=== PATIENT | female | born 1980 | race Hispanic/Latino ===

== ENCOUNTER 2020-01-10 19:27 | Inpatient (IN) | payer SELFPAY ==
[~2020-01-10] VITALS: Ht 162.6 cm; Wt 72.6 kg
[2020-01-10] MEDS ORDERED: FAMOTIDINE 20 MG/2 ML VIAL IV STA (20:24)
[2020-01-10] MEDS ORDERED: PROMETHAZINE 25MG/ NS 50ML (IV) IV ONE (20:30)
[2020-01-10] MEDS ORDERED: SODIUM CHLORIDE 0.9% 1000ML 1,000 ML IV SCH (20:30)
[2020-01-10] MEDS ORDERED: PROMETHAZINE HCL (IM) 25 MG/ML VIAL ONE (21:41)
[2020-01-10] MEDS ORDERED: SODIUM CHLORIDE 0.9% 1000ML 1,000 ML ONE (21:42)
[2020-01-10] MEDS ORDERED: MAGNESIUM SULFATE 2GM/50ML 50 ML IV ONE (23:24)
[2020-01-10] MEDS ORDERED: POTASSIUM CHLORIDE 20 MEQ TAB CR PO ONE (23:25)
[2020-01-11] VITALS (7 sets, daily range): BP systolic 108–127; BP diastolic 70–85
[2020-01-11] MEDS ORDERED: MAGNESIUM SULFATE 2GM/50ML 50 ML IV ONE
[2020-01-11] MEDS ORDERED: POTASSIUM CHLORIDE 10MEQ/100ML 100 ML IV ONE
[2020-01-11] MEDS ORDERED: POTASSIUM CHLORIDE 20MEQ/100ML 100 ML ONE ×2 (00:35→02:59)
--- NOTE | 2020-01-11 01:20 | Emergency Department Note ---
History of Present Illnes History of Present Illness Chief Complaint: General Medicine Complaints History of Present Illness This is a 39 year old female, with history of stage II breast cancer diagnosed in 07/2019 for which she is receiving treatment at [facility], who presents with persistent nausea, vomiting, and diarrhea for the past 5 days, worse over the last 3 days, following chemotherapy received on 01/04/2020. Patient states she's been unable to keep any fluids down for the last 2 days, and she is having 8-10, loose, watery stools per day, without blood or mucus. Patient states that she did not go to [facility], "because the car ride would make her too sick." She admits to feeling weak, and sometimes lightheaded upon standing. Patient has been taking Zofran at home, without relief of her symptoms. She laurel es any fever, chills, dysuria, frequency, or urgency. Patient states this was 6/6 chemotherapy treatments, that were scheduled for treatment of this breast cancer. Patient denies any abdominal pain, other than some mild lower abdominal cramping when she has the diarrhea. She denies any chest pain, cough, or shortness of breath. Historian: Patient Arrival Mode: Car History limited by: language barrier Crime Analyst Required: Yes (Nathan Bartlett RN interpreted, with [email or web address]'s permission.) Onset (how long ago): day(s) Location: abdomen Quality: nauseated Radiation: Reports non-radiation Severity: severe Onset quality: sudden Duration (how long): day(s) (6) Timing of current episode: intermittent Progression: worsening Chronicity: new (patient states that this is the first time she's had to come to the emergency room following any of her chemotherapy treatments.) Context: Reports recent illness (patient is immunocompromised due to her history of breast cancer and just completing 6 of 6 chemotherapy treatments.) Relieving factors: none Exacerbating factors: none Associated symptoms: Reports malaise, Reports nausea/vomiting; Denies chest pain, Denies cough, Denies fever/chills Treatments prior to arrival: none Risk factors: immunocompromised Past Medical/Family History Physician Review I have reviewed the patient's past medical and family history. Any updates have been documented here. Past Medical History Recent Fever: No Clinical Suspicion of Infectio: No New/Unexplained Change in Ment: No Past Medical History: Cancer (Stage II Breast Cancer, diagnosed in 07/30/2019) Past Surgical History: Cholecysctectomy, Tubal Ligation Other Surgery: Lumpectomy of Left Breast - possible (pt does not clearly state) Right SC Portacath Social History Smoking Cessation: Never Smoker Alcohol Use: None Any Illegal Drug Use: No TB Exposure/Symptoms: No Physically hurt or threatened: No Family History Family history of heart diseas: No Other Last Tetanus: uknown Any Pre-Existing Lines (PICC,: Yes (Right SC Portacath) Is patient up to date on immun: No Last Flu: unknown Last Pneumovax: unknown Review of Systems Review of Systems Constitutional: Reports malaise, Reports weakness; Denies chills, Denies fever EENTM: Denies nose congestion, Denies throat pain Cardiovascular: Denies chest pain, Denies edema, Denies palpitations, Denies syncope Respiratory: Reports no symptoms Gastrointestinal: Reports diarrhea, Reports nausea, Reports vomiting Genitourinary: Denies discharge, Denies dysuria, Denies frequency Musculoskeletal: Denies back pain, Denies muscle pain, Denies neck pain Integumentary: Reports no symptoms, Reports change in color (pale); Denies rash Neurological: Reports no symptoms Hematological/Lymphatic: Reports no symptoms Review of other systems: All other systems negative Physical Exam Related Data Vital signs reviewed: Yes Physical Exam CONSTITUTIONAL Constitutional: Present well-developed, Present well-nourished; Absent distressed, Absent ill appearing HENT HENT: Present normocephalic, Present atraumatic, Present oropharynx clear/moist, Present nose normal HENT L/R: Present left ext ear normal, Present right ext ear normal EYES Eyes: Reports PERRL, Reports conjunctivae normal NECK Neck: Present ROM normal PULMONARY Pulmonary: Present effort normal, Present breath sounds normal CARDIOVASCULAR Cardiovascular: Present regular rhythm, Present heart sounds normal, Present capillary refill normal, Present normal rate GASTROINTESTINAL Abdominal: Present soft, Present nontender, Present bowel sounds normal; Absent guarding, Absent rebound GENITOURINARY SKIN Skin: Present warm, Present dry, Present pale MUSCULOSKELETAL Musculoskeletal: Present ROM normal NEUROLOGICAL Neurological: Present alert, Present oriented x 3, Present no gross motor or sensory deficits PSYCHOLOGICAL Psychological: Present mood/affect normal, Present judgement normal Results Laboratory Laboratory Laboratory Tests Test 7/2/20 02:55 Sodium Level 133 mmol/L (136-145) Potassium Level 2.5 mmol/L (3.5-5.1) Chloride Level 98 mmol/L (98-107) Carbon Dioxide Level 23 mmol/L (22-29) Anion Gap 14.5 mmol/L (8-16) Blood Urea Nitrogen 20 mg/dL (7-26) Creatinine 0.75 mg/dL (0.57-1.11) Estimat Glomerular Filtration Rate > 60 ML/MIN (60-) BUN/Creatinine Ratio 27 (6-25) Glucose Level 154 mg/dL (74-118) Calcium Level 8.1 mg/dL (8.4-10.2) Magnesium Level 2.3 MG/DL (1.3-2.1) Metlyte 8 #1 - nl except for gluc = 170, BUN - 26, Na = 130, K+ = 2.3, CL = 90, CBC - WBC = 3.4, H/H = 15.3/44.3, plt = 205 Liver - nl except for ALT = 85, AST = 54, TP = 8.2; UA = gluc = 100 mg/dl, Jimy - small, blo - small, pro - 300 mg/dl, james - small; Repeat Labs: 01/11/2020 at 07:00 after 40 MEQ KCL IV + 2 grams of IV Magnesium K+ = 2.4, Na = 132, gluc = 120 H/H = 11.5/34 Lab results reviewed: Yes Diagnostics Tests Diagnostic test(s) reviewed: Yes Assessment & Plan Medical Decision Making MDM electrolyte abnormality, due to side effects of recent chemotherapy Reassessment Reassessment - Despite efforts at replacing K+ IV overnight, along with IV Magnesium, the potassium remains too low. Pt has mild nausea and cannot tolerate oral potassium at this time. Explained to patient the need for admission ,for further electrolyte replacement and she is agreeable to admission. 07:15 - case discussed with Dr. Wilkins, and he is agreeable to admitting patient to tele Obs. Awaiting bed assignment and then pateint will be transferred. Assessment & Plan Final Impression: (1) Chemotherapy induced nausea and vomiting (2) Acute hypokalemia (3) Nausea and vomiting (4) Diarrhea (5) Breast cancer Depart Disposition: ADMITTED ([facility] on tele) Medications in the ED Sodium Chloride 1,000 ml @ 0 mls/hr Q0M IV Last administered on 01/10/20at 21:35; Admin Dose 999 MLS/HR; Start 01/10/20 at 20:30; Stop 01/10/20 at 23:59; Status DC Famotidine 20 mg NOW STAT IV ; Start 01/10/20 at 20:24; Stop 01/10/20 at 20:25; Status UNV Promethazine HCl 25 mg STK-MED ONCE .ROUTE ; Start 01/10/20 at 21:41; Stop 01/10/20 at 21:36; Status DC Sodium Chloride 1,000 ml @ ud STK-MED ONCE .ROUTE ; Start 01/10/20 at 21:42; Stop 01/10/20 at 21:36; Status DC Magnesium Sulfate 50 ml @ ud STK-MED ONCE IV ; Start 01/10/20 at 23:24; Stop 01/10/20 at 23:18; Status DC Potassium Chloride 80 meq STK-MED ONCE PO ; Start 01/10/20 at 23:25; Stop 01/10/20 at 23:19; Status DC Sodium Chloride 1,000 ml @ 0 mls/hr Q0M IV ; Start 01/11/20 at 00:00; Stop 02/10/20 at 00:00; Status UNV Magnesium Sulfate 50 ml @ 25 mls/hr ONCE ONCE IV ; Start 01/11/20 at 00:00; Stop 01/11/20 at 01:59; Status UNV Potassium Chloride 100 ml @ 100 mls/hr ONCE ONCE IV ; Start 01/11/20 at 00:00; Stop 01/11/20 at 00:59; Status UNV Potassium Chloride 100 ml @ ud STK-MED ONCE .ROUTE ; Start 01/11/20 at 00:35; Stop 01/11/20 at 00:32; Status DC GABO GORDON MD Jan 11, 2020 01:20
[2020-01-11] MEDS ORDERED: METOCLOPRAMIDE HCL 10 MG/2ML VIAL IV ONE (03:00)
[2020-01-11 04:22] LABS: ANION GAP 14.5 mmol/L (8-16); BLOOD UREA NITROGEN 20 mg/dL (7-26); BUN/CREATININE RATIO 27 (6-25); CALCIUM 8.1 mg/dL (8.4-10.2); CARBON DIOXIDE 23 mmol/L (22-29); CHLORIDE 98 mmol/L (98-107); CREATININE, SERUM 0.75 mg/dL (0.57-1.11); EST GLOMERULAR FILTRATION RATE > 60 ML/MIN (60-); GLUCOSE 154 mg/dL (74-118); SODIUM 133 mmol/L (136-145)
[2020-01-11 04:33] LABS: POTASSIUM 2.5 mmol/L (3.5-5.1)
[2020-01-11] MEDS ORDERED: POTASSIUM CHLORIDE 20MEQ/100ML 100 ML IV ONE ×2 (07:30→11:30)
[2020-01-11] MEDS ORDERED: SODIUM CHLORIDE 0.9% 1000ML 1,000 ML IV SCH ×2 (07:30)
[2020-01-11] MEDS ORDERED: ONDANSETRON HCL INJ 2MG/ML 2ML 2 MG/ML VIAL IV PRN (07:30)
--- NOTE | 2020-01-11 08:00 | NUR ---
RECIEVED REPORT FROM KRISTEL. REPORTED THAT MAIN ER TO DO COVID TEST PER CHARGE NURSE
--- NOTE | 2020-01-11 08:38 | NUR ---
[facility] NOTIFIED OF TRANSFER TO [facility], ETA 30 MINUTUES AT 0820
[2020-01-11] MEDS ORDERED: PROMETHAZINE 12.5MG/ NACL 0.9% 12.5 MG/50 ML BAG IV PRN (09:00)
[2020-01-11] MEDS ORDERED: FAMOTIDINE 20 MG/2 ML VIAL IV SCH (09:00)
[2020-01-11] MEDS ORDERED: POTASSIUM CHLORIDE 10MEQ/100ML 400 ML IV ONE (09:30)
[2020-01-11] MEDS ORDERED: ZOFRAN4 MG PO (11:29)
--- NOTE | 2020-01-11 11:30 | NUR ---
ADMITTED PATIENT FROM [facility] TO ROOM 108. SHE IS IN STABLE CONDITION. NO COMPLAINTS OF PAIN. ORIENTED TO ROOM AND POLICIES. CALL LIGHT WITHIN REACH. BED IN THE LOWEST POSITION.
[2020-01-11] MEDS: FAMOTIDINE 20 MG/2 ML VIAL IV SCH ×2 (12:00→21:03)
[2020-01-11] MEDS: KCL 40MEQ/0.9% SOD CHL 1,000 ML IV SCH ×2 (12:00→21:03)
[2020-01-11] MEDS: DIPHENOXYLATE/ATROPINE TAB PO PRN (15:35)
[2020-01-11 18:04] LABS: ANION GAP 11.7 mmol/L (8-16); BLOOD UREA NITROGEN 13 mg/dL (7-26); BUN/CREATININE RATIO 22 (6-25); CALCIUM 8.2 mg/dL (8.4-10.2); CARBON DIOXIDE 23 mmol/L (22-29); CHLORIDE 104 mmol/L (98-107); CREATININE, SERUM 0.58 mg/dL (0.57-1.11); EST GLOMERULAR FILTRATION RATE > 60 ML/MIN (60-); GLUCOSE 107 mg/dL (74-118); SODIUM 136 mmol/L (136-145)
[2020-01-11 18:07] LABS: POTASSIUM 2.7 mmol/L (3.5-5.1)
[2020-01-11] MEDS: POTASSIUM CHLORIDE 20MEQ/100ML 100 ML IV SCH ×2 (18:40→23:04)
--- NOTE | 2020-01-11 19:23 | NUR ---
BEDSIDE SHIFT REPORT GIVEN TO ONCOMING NURSE. PATIENT IS RESTING IN BED. NO ACUTE DISTRESS NOTED AT THIS TIME. CALL LIGHT WITHIN REACH. BED IN THE LOWEST POSITION.
--- NOTE | 2020-01-11 20:56 | Consultation ---
DATE OF CONSULTATION: 01/11/2020 HISTORY OF PRESENT ILLNESS: A 39-year-old female, recently diagnosed to have breast cancer, 15 days ago received chemotherapy. For the last 4 or 5 days, she has been vomiting, nauseated, and having diarrhea. Presented to the hospital and was found to have profound hypokalemia. Renal consulted for management of hypokalemia. Labs show potassium 2.5, sodium 133, bicarb 23, creatinine 0.7, magnesium 2.3. Patient otherwise awake, alert, lying supine. ALLERGIES: NO APPARENT DRUG ALLERGIES. PAST MEDICAL HISTORY: Patient denies any history of hypertension, prior hypokalemia, or electrolyte problems. CURRENT MEDICATIONS: Please see MAR for details. SOCIAL HISTORY: Does not smoke or drink. FAMILY HISTORY: Significant for hypertension. PHYSICAL EXAMINATION: GENERAL: Awake, alert, oriented x3. Sitting up in no apparent distress. VITAL SIGNS: Blood pressure 112/75, pulse rate 101, afebrile, oxygen saturation 100%. HEAD AND NECK: Cornea clear. Oral mucosa moist. LUNGS: Relatively clear. HEART: S1 and S2 audible. ABDOMEN: Otherwise soft, nontender. No apparent visceromegaly. LOWER EXTREMITY: No edema. IMPRESSION: Hypokalemia and hyponatremia in a patient with postchemotherapy nausea, vomiting, and diarrhea. PLAN: Agree with measures taken. Replace potassium. Magnesium noted. We will repeat chemistries and follow nurse to call me with the results. The etiology of potassium loss is mainly through GI tract. MD NANCY Boo/CARINA /[id number]
[2020-01-12] VITALS (8 sets, daily range): BP systolic 111–144; BP diastolic 65–77
[2020-01-12] MEDS: KCL 40MEQ/0.9% SOD CHL 1,000 ML IV SCH ×2 (02:45→15:52)
[2020-01-12 05:52] LABS: BASOPHILS % 0.1 % (0.0-1.0); HEMATOCRIT 30.4 % (34.2-44.1); HEMOGLOBIN 10.3 g/dL (12.0-16.0); LYMPHOCYTES # (AUTO) 1.8 (1.0-3.2); LYMPHOCYTES % 21.7 % (18.0-39.1); MEAN CORPUSCULAR HEMOGLOBIN 32.7 pg (28-32); MEAN CORPUSCULAR HGB CONC 33.9 g/dL (31-35); MEAN CORPUSCULAR VOLUME 96.5 fL (81-99); MONOCYTES # (AUTO) 1.3 (0.2-0.8); NEUTROPHILS # (AUTO) 4.8 (2.1-6.9); PLATELET COUNT 141 x10e3/uL (140-360); RED BLOOD COUNT 3.15 x10e6/uL (3.6-5.1); RED CELL DISTRIBUTION WIDTH 13.2 % (11.7-14.4)
[2020-01-12 06:37] LABS: ALANINE AMINOTRANSFERASE 66 IU/L (0-55); ALBUMIN 2.9 g/dL (3.5-5.0); ALBUMIN/GLOBULIN RATIO 1.1 (0.8-2.0); ALKALINE PHOSPHATASE 65 IU/L (40-150); ANION GAP 10.9 mmol/L (8-16); BLOOD UREA NITROGEN 8 mg/dL (7-26); BUN/CREATININE RATIO 14 (6-25); CALCIUM 7.8 mg/dL (8.4-10.2); CARBON DIOXIDE 19 mmol/L (22-29); CHLORIDE 108 mmol/L (98-107); CREATININE, SERUM 0.57 mg/dL (0.57-1.11); EST GLOMERULAR FILTRATION RATE > 60 ML/MIN (60-); GLUCOSE 92 mg/dL (74-118); SODIUM 135 mmol/L (136-145)
[2020-01-12 06:42] LABS: POTASSIUM 2.9 mmol/L (3.5-5.1)
--- NOTE | 2020-01-12 06:46 | NUR ---
CALLED AND NOTIFIED DR. ALONZO PT POT CRITICAL AGAIN AT 2.9 AND WAS TOLD TO CONTACT DR PEREZ. CALLED AND PAGED DR PEREZ TO NOTIFY OF ALL KCL GIVEN AND AWAITING CALL BACK.
--- NOTE | 2020-01-12 07:00 | NUR ---
BEDSIDE SHIFT REPORT FROM BENCH MOLDER APPRENTICE RN. PT DENIES NEEDS AT THIS TIME.
[2020-01-12 07:01] LABS: MAGNESIUM 1.2 MG/DL (1.3-2.1); PHOSPHORUS 1.9 MG/DL (2.3-4.7)
[2020-01-12] MEDS ORDERED: POTASSIUM CHLORIDE 20MEQ/100ML 100 ML IV ONE ×3 (07:45→11:45)
[2020-01-12] MEDS: FAMOTIDINE 20 MG/2 ML VIAL IV SCH ×2 (08:36→20:36)
[2020-01-12] MEDS ORDERED: MAGNESIUM SULFATE 2GM/50ML IV SCH (10:00)
[2020-01-12] MEDS: MAGNESIUM SULFATE 2GM/50ML 50 ML IV SCH ×2 (10:02→14:10)
[2020-01-12] MEDS ORDERED: POTASSIUM PHOSPHATE 20 MM in SODIUM CHLORIDE 0.9% 250ML 250 ML IV SCH (14:00)
[2020-01-12] MEDS: DIPHENOXYLATE/ATROPINE TAB PO PRN (16:35)
[2020-01-12 17:53] LABS: ANION GAP 10.9 mmol/L (8-16); BLOOD UREA NITROGEN 6 mg/dL (7-26); BUN/CREATININE RATIO 11 (6-25); CALCIUM 8.3 mg/dL (8.4-10.2); CARBON DIOXIDE 23 mmol/L (22-29); CHLORIDE 104 mmol/L (98-107); CREATININE, SERUM 0.56 mg/dL (0.57-1.11); EST GLOMERULAR FILTRATION RATE > 60 ML/MIN (60-); GLUCOSE 95 mg/dL (74-118); SODIUM 135 mmol/L (136-145)
[2020-01-12 17:57] LABS: POTASSIUM 2.9 mmol/L (3.5-5.1)
[2020-01-13] VITALS (7 sets, daily range): BP systolic 108–127; BP diastolic 53–70
[2020-01-13] MEDS: KCL 40MEQ/0.9% SOD CHL 1,000 ML IV SCH ×3 (02:00→21:52)
[2020-01-13 06:34] LABS: ANION GAP 12.7 mmol/L (8-16); BLOOD UREA NITROGEN < 5 mg/dL (7-26); CALCIUM 7.8 mg/dL (8.4-10.2); CARBON DIOXIDE 26 mmol/L (22-29); CHLORIDE 102 mmol/L (98-107); CREATININE, SERUM 0.56 mg/dL (0.57-1.11); EST GLOMERULAR FILTRATION RATE > 60 ML/MIN (60-); GLUCOSE 118 mg/dL (74-118); SODIUM 138 mmol/L (136-145)
[2020-01-13 06:40] LABS: BUN/CREATININE RATIO 9 (6-25); POTASSIUM 2.7 mmol/L (3.5-5.1)
[2020-01-13 07:16] LABS: MAGNESIUM 1.2 MG/DL (1.3-2.1); PHOSPHORUS 3.9 MG/DL (2.3-4.7)
[2020-01-13] MEDS ORDERED: DIPHENOXYLATE/ATROPINE TAB PO PRN (08:45)
[2020-01-13] MEDS: POTASSIUM CHLORIDE 20MEQ/100ML 100 ML IV SCH ×3 (09:11→15:57)
[2020-01-13] MEDS ORDERED: DIPHENOXYLATE/ATROPINE TAB PO ONE (09:30)
[2020-01-13] MEDS ORDERED: SODIUM CHLORIDE 0.9% 250ML 250 ML ONE (09:32)
[2020-01-13] MEDS: MAGNESIUM SULFATE 2GM/50ML 50 ML IV SCH ×2 (11:50→12:00)
[2020-01-13] MEDS ORDERED: MAGNESIUM SULFATE 2GM/50ML 50 ML IV SCH (16:00)
--- NOTE | 2020-01-13 19:53 | NUR ---
Received change of shift report from AM nurse. Walking rounds completed.
[2020-01-14] VITALS: BP 112/69
[2020-01-14 04:00] VITALS: BP 104/51
[2020-01-14 06:05] LABS: ANION GAP 11.2 mmol/L (8-16); CALCIUM 7.8 mg/dL (8.4-10.2); CARBON DIOXIDE 28 mmol/L (22-29); CHLORIDE 102 mmol/L (98-107); CREATININE, SERUM 0.53 mg/dL (0.57-1.11); EST GLOMERULAR FILTRATION RATE > 60 ML/MIN (60-); GLUCOSE 115 mg/dL (74-118); POTASSIUM 3.2 mmol/L (3.5-5.1); SODIUM 138 mmol/L (136-145)
[2020-01-14 06:06] LABS: BLOOD UREA NITROGEN < 2 mg/dL (7-26); BUN/CREATININE RATIO 4 (6-25)
--- NOTE | 2020-01-14 07:00 | NUR ---
RCD PT AT BED PT IS ALERT AND ORIENTED IV PATENT PT RESTING ON BED BED LOW AND LOCKED CALL LIGHT IN REACH
[2020-01-14 07:59] VITALS: BP 101/59
[2020-01-14] MEDS: KCL 40MEQ/0.9% SOD CHL 1,000 ML IV SCH (08:00)
[2020-01-14 08:52] VITALS: BP 101/59
[2020-01-14] MEDS ORDERED: POTASSIUM CHLORIDE 10MEQ EA PO ONE (10:30)
[2020-01-14] MEDS ORDERED: MAGNESIUM OXIDE 400 MG TAB PO ONE (10:30)
[2020-01-14] MEDS ORDERED: MAGOX 400400 MG PO (10:45)
[2020-01-14] MEDS ORDERED: POTASSIUM CHLO20 ME1 PO (10:47)
--- NOTE | 2020-01-14 11:24 | NUR ---
PATIENT WENT HOME IN SAFE CONDITION WITH HER BROTHER
--- NOTE | 2020-01-15 02:08 | Discharge Summary ---
ELECTRICIAN CONTROL EQUIPMENT: Dr. Michael Stanley. FINAL DIAGNOSIS: Electrolyte derangement secondary to intractable nausea and vomiting and diarrhea post chemotherapy. SUMMARY: A 39-year-old female with post chemotherapy week ago with recurrent nausea and vomiting, quite severe that the home medication did not improve, therefore she ended up in the hospital. Her potassium was very low and therefore, she has been replaced is on potassium. She is doing much better now. Potassium is 3.2. The patient will get another 40 mEq and then, she can go home today. Continue with potassium 20 mEq daily for 10 days, also at night magnesium oxide 400 mg twice a day. She will get Zofran ODT 4 mg sublingual q.6 as needed for nausea and vomiting. Of note, her diarrhea, nausea and vomiting are now resolving. The patient is stable. She will follow up with her family physician within a week. The patient will follow up with her oncologist as well post breast cancer treatment. MD MT Lowe/CARINA /[id number]
== END 2020-01-14 11:23 | disposition home or self-care (01) | DRG 641 ==
LOC: FSED 21:00 → ERHOLD 01-11 07:23 → MED/SURG 01-11 10:42 → OBSVTOIN 01-12 08:38
PROVIDERS: ADMIT Internal Medicine; ATTEND Internal Medicine
DX: E87.1 Hypo-osmolality and hyponatremia (principal); E87.8 Other disorders of electrolyte and fluid balance, not elsewhere classified; T45.1X5A Adverse effect of antineoplastic and immunosuppressive drugs, initial encounter; R11.2 Nausea with vomiting, unspecified; R19.7 Diarrhea, unspecified; E87.6 Hypokalemia; Z11.59 Encounter for screening for other viral diseases; C50.919 Malignant neoplasm of unspecified site of unspecified female breast
CPT/HCPCS: 36415; 80048; 80053; 81003; 83735; 84100; 84311; 85025; 87635; 99284; G0378; J2405; J2550; J2765; J3475; J3480; J7030; J7050